=== PATIENT | male | born 1970 | race Two or more races ===

== ENCOUNTER → 2019-06-25 | Day surgery (SDC) | payer OTHER ==
[~2019-06-25] VITALS: Ht 188 cm; Wt 82.6 kg
[2019-06-25] VITALS (11 sets, daily range): BP systolic 120–166; BP diastolic 72–94
[~2019-06-25] MED LIST: Bacitracin 50000 Units Vial ONE; Bupivacaine w/Epi 0.5% 30ml Vial INJ ONE; D5 1/2NS 1,000 ML IV SCH; DiphenhydrAMINE 50mg/ml Inj IVP PRN; Glycopyrrolate 0.2mg/ml 1ml Vial ONE; HYDROcodone/Acetamin 5/325 tab ORAL PRN; HYDROmorphone 1mg/ml Carpuject SUBQ PRN; Hydromorphone 0.5mg/0.5ml inj IVP PRN; KLONOPIN0.5 MG ORAL; Ketorolac 30mg Inj IV PRN; Ketorolac 30mg Inj ONE; LR 1000ml 1,000 ML IVLG SCH; LR 1000ml ONE; MAGNESIUM30 M1 PO; Meperidine 50mg/ml Inj(FOR RIGORS ONLY) IV PRN; Metoclopramide 10mg/2ml Inj IVP PRN; Midazolam 2mg/2ml Inj ONE; NS Irrig 1000ml ONE; NeoSporin Gu Irrig 1ml Amp IRRIG ONE; Neostigmine 1mg/ml 10ml Inj ONE; Propofol 200mg/20ml IV ONE; Rocuronium Bromide 50mg/5ml Inj IV ONE; Sterile Water Irrig 1000ml IRRIG ONE; Succinylcholine 20mg/ml 10ml vial ONE; TRUVADA 200 MG1 EAC1 ORAL; Tylenol #3 tab (300mg/30mg) ORAL PRN; VITAMIN C1000 M2 PO; ceFAZolin sod 2 GM in D5W 110 ML IV ONE; fentaNYL 100 mcg/2 mL ONE
--- NOTE | 2019-06-25 12:16 | Pre-Procedure Note/Attestation ---
Pre-Procedure Note/Attestation Complete Prior to Procedure Planned Procedure: bilateral Procedure Narrative: laparoscopic vs open left inguinal hernia repair with mesh; possible open Indications for Procedure Pre-Operative Diagnosis: left inguinal hernia possible right inguinal hernia Attestation I attest that I discussed the nature of the procedure; its benefits; risks and complications; and alternatives (and the risks and benefits of such alternatives ), prior to the procedure, with the patient (or the patient's legal client relations representative). I attest that, if there was a reasonable possibility of needing a blood transfusion, the patient (or the patient's legal client relations representative) was given the [facility] standardized written summary, pursuant to the [place] Blood Safety Act ([place] Health and Safety Code # 1645, as amended). I attest that I re-evaluated the patient just prior to the surgery and that there has been no change in the patient's H&P, except as documented below: Harish Nuñez Jun 25, 2019 12:16
--- NOTE | 2019-06-25 13:39 | Anethesia Preoperative Eval ---
Anesthesia Pre-op PMH/ROS General Date of Evaluation: Jun 25, 2019 Time of Evaluation: 12:30 Anesthesiologist: Amalia ASA Score: ASA 2 Mallampati Score Class I : Soft palate, uvula, fauces, pillars visible Class II: Soft palate, uvula, fauces visible Class III: Soft palate, base of uvula visible Class IV: Only hard plate visible Mallampati Classification: Class II Surgeon: Blaine Diagnosis: L injuinal hernia Surgical Procedure: Laparoscopic hernia repair Anesthesia History: PONV Family History: no anesthesia problems Allergies: Coded Allergies: No Known Allergies (Unverified , 06/25/19) Medications: see eMAR Patient NPO?: Yes Past Medical History Cardiovascular: Denies: HTN, CAD, [place], valve dz, arrhythmia, other Pulmonary: Denies: asthma, COPD, LISSETT, other Gastrointestinal/Genitourinary: Reports: GERD - mild; Denies: CRI, ESRD, other Neurologic/Psychiatric: Reports: depression/anxiety Endocrine: Denies: DM, hypothyroidism, steroids, other HEENT: Denies: cataract (L), cataract (R), glaucoma, NEZ PERCE (L), NEZ PERCE (R), other Hematology/Immune: Denies: anemia, DVT, bleeding disorder, other Musculoskeletal/Integumentary: Denies: OA, RA, DJD, DDD, edema, other PMH Narrative: as above PSxH Narrative: Septoplasty, T&A, liposuction Anesthesia Pre-op Phys. Exam Physician Exam Last Vital Signs Date Time Temp Pulse Resp B/P (MAP) Pulse Ox O2 Delivery O2 Flow Rate FiO2 06/25/19 10:18 Room Air 06/25/19 10:09 97.0 48 18 120/72 97 Constitutional: NAD Neurologic: CN 2-12 intact Cardiovascular: RRR, no M/R/G Respiratory: CTA Gastrointestinal: S/NT/ND Airway Exam Mallampati Score: Class II MO: full Neck: flexible ROM: full Teeth: intact Dentures: no upper, no lower Anesthesia Pre-op A/P Labs see chart Studies Pre-op Studies: EKG - NR Risk Assessment & Plan Assessment: ASA 2 Plan: GA with ETT Status Change Before Surgery: No Pre-Antibiotics Drug: Ancef 2gr Given Within 1 Hr of Incision: Yes Time Given: 13:10 Bharath Holland MD Jun 25, 2019 13:39
--- NOTE | 2019-06-25 14:42 | Brief Operative Note ---
Immediate Post Operative Note Operative Note Pre-op Diagnosis: left inguinal hernia possible right inguinal hernia Procedure: 1. umbilical hernia repair 2. left inguinal hernia repair with mesh 3. right inguinal hernia repair with mesh Post-op Diagnosis: 1. small umbilical hernia 2. left indirect inguinal hernia with small direct component and moderate lipoma of the cord 3. right direct inguinal hernia Surgeon: Savannah Anesthesiologist: Amalia Anesthesia: general, local Specimen: yes - umbilcical hernia sac Complications: none Condition: stable Fluids: see records Estimated Blood Loss: minimal Drains: none Implant(s) used?: Yes - see list Harish Nuñez Jun 25, 2019 14:42
--- NOTE | 2019-06-25 14:53 | Immediate Post-Op Evaluation ---
Immediate Post-Op Evalulation Immediate Post-Op Evalulation Procedure: Bilateral laparoscopic hernia repair Date of Evaluation: Jun 25, 2019 Time of Evaluation: 14:52 IV Fluids: 1000 Blood Products: none Estimated Blood Loss: min Urinary Output: none Blood Pressure Systolic: 156 Blood Pressure Diastolic: 78 Pulse Rate: 86 Respiratory Rate: 18 O2 Sat by Pulse Oximetry: 98 Temperature (Fahrenheit): 97.8 Pain Score (1-10): 1 Nausea: No Vomiting: No Complications none Patient Status: reacts, patent, extubated, none Hydration Status: adequate Bharath Holland MD Jun 25, 2019 14:53
--- NOTE | 2019-06-25 16:14 | 48 Hour Post Anesthesia Eval ---
Post Anesthesia Evaluation Procedure: Bilateral laparoscopic hernia repair Date of Evaluation: Jun 25, 2019 Time of Evaluation: 16:10 Blood Pressure Systolic: 128 0: 76 Pulse Rate: 68 Respiratory Rate: 20 Temperature (Fahrenheit): 97.7 O2 Sat by Pulse Oximetry: 98 Airway: patent Nausea: No Vomiting: No Pain Intensity: 2 Hydration Status: adequate Cardiopulmonary Status: stable Mental Status/LOC: patient returned to baseline Follow-up Care/Observations: n/a Post-Anesthesia Complications: none Follow-up care needed: ready to discharge Bharath Holland MD Jun 25, 2019 16:14
--- NOTE | 2019-06-26 22:00 | Operative Note - Dictated ---
DATE OF OPERATION: 06/25/2019 PREOPERATIVE DIAGNOSES: 1. Left inguinal hernia, possible right. 2. Umbilical hernia. POSTOPERATIVE DIAGNOSES: 1. Small umbilical hernia. 2. Left indirect inguinal hernia with small direct component and moderate lipoma of cord. 3. Right direct inguinal hernia. OPERATION PERFORMED: 1. Umbilical hernia repair, open. 2. Laparoscopic left inguinal hernia repair with mesh. 3. Laparoscopic right inguinal hernia repair with mesh. ATTENDING SURGEON: Harish Nuñez M.D. SCREENER PERFUMER: None. ANESTHESIOLOGIST: Bharath Holland M.D. ANESTHESIA: General FEED MILLER plus local. SPECIMENS: Umbilical hernia sac. COMPLICATIONS: None. DRAINS: None. COUNTS: Sponge and needle count correct x2. ANTIBIOTICS: 2 g Ancef given 1 hour prior to cut time. IMPLANTS: 1. Bard 3DMax mesh right medium laparoscopic inguinal hernia mesh. Lot [id number]. Date of expiration 12/26/2023. Reference #[id number]. 2. Bard 3DMax mesh left medium laparoscopic inguinal hernia mesh. Lot number [id number]. Expiration date 11/27/2021. Reference #[id number]. INDICATIONS FOR PROCEDURE: This is a 48-year-old male who was referred to myself after being identified by his primary care physician of having an inguinal hernia. In the office, the patient was identified to have a symptomatic left inguinal hernia and furthermore on exam was noted to have a small potential right inguinal hernia. The patient states that since 2018, he began noticing some left groin pain during workouts. Intermittently causing discomfort and when seen by his primary care physician, Dr. Logan who ordered an ultrasound, which identified a hernia. He complains of intermittent discomfort on the right side that has been more recent. 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 Given these findings, surgery is indicated and recommended. Long discussion was had with the patient regarding these findings and operative intervention. We discussed laparoscopic versus open surgery. We discussed laparoscopic left inguinal hernia repair with possible right inguinal hernia repair if a hernia was identified intraoperatively. Furthermore, umbilical hernia repair. The patient expressed understanding and consented to surgery, which was scheduled and planned for 06/25/2019 after all risks, benefits, and alternatives were discussed in detail. Furthermore, we discussed in detail mesh indications and usage and potential complications. OPERATIVE NOTE: The patient was taken to the operating room and placed on the operating table in supine position with bilateral arms tucked. All bony prominences were well padded. SCDs were placed. Preoperative time-out taken to identify the patient, procedure, operative staff, and surgical staff. General anesthesia was induced. The patient was intubated. Downs catheter was not inserted given the patient voided prior to entering the operating room. The abdomen was clipped, prepped, draped in standard surgical fashion. Because of the patient's umbilical hernia, an umbilical incision was made using a fresh #11 scalpel and hernia sac was clearly identified. Hernia sac was incised and entry of the abdomen was noted without complication. A 12 mm Kathryn trocar was inserted and the abdomen was insufflated 12 to 15 mmHg. The hernia sac of note was sent to pathology for review. Laparoscope was inserted. No injury from initial trocar placement noted. In the right upper quadrant, liver was otherwise healthy. In the left upper quadrant, liver was otherwise healthy with a small cyst noted at the edge. Stomach portions of intestine, which we noted were otherwise healthy and normal. The pelvis was otherwise normal. In the right lower quadrant, a small to moderate direct inguinal hernia was identified. In the left lower quadrant, a left indirect inguinal hernia with a small direct component was clearly identified. At this time, decision was made to proceed with surgical invention of bilateral inguinal hernia repairs with mesh. Secondary trocars were placed under direct visualization beginning with a 5 mm right mid abdomen followed by left 5mm mid abdomen port. No injury from secondary trocar placement noted. Laparoscopes were inserted and we first began with the left side. The peritoneal lining approximately 2 cm above the hernia defect was incised and carried medially to the medial ligament followed laterally towards the anterior superior iliac spine. A plane was made in the peritoneal lining until the hernia sac was noted. The hernia sac was reduced and clear plane was made for mesh placement. On the left side, the cord was circumferentially dissected out and protected throughout the procedure. A lipoma of the cord was noted on the left side, moderate in size, and was reduced, but not divided and placed anterior to the mesh upon completion of the procedure. The pubic tubercle was clearly identified on the right side and cleared off for mesh placement and we ensured not to go too laterally, but just enough for mesh placement. Once appropriate exposure was obtained at this time, a BlueKaiMax laparoscopic precut medium sized mesh was inserted into the operative field and inserted through the 12 mm trocar into the abdomen. It was positioned and fashioned appropriately to cover direct, indirect, and femoral potential hernia spaces. A ProTack absorbable tack was then used to tack to Javi's ligament medially. No lateral tacks were placed. Once in appropriate positioning, the peritoneal lining was reapproximated using laparoscopic absorbable ProTack. Following this, in a similar fashion on the right side, hernia repair was fashioned. 2 cm above the direct defect, a incision was made in the peritoneal lining, carried laterally and medially followed by dissection of the peritoneal lining plane. The hernia was reduced and dissection was carried medially to the pubic tubercle. Dissection was then carried laterally. Cord structures were clearly identified. No lipoma of the cord was noted on the right. Cord structures were protected throughout the procedure. A Bard right-sided medium 3D precut mesh was then inserted into the operative field and placed into the abdomen followed by appropriate positioning. In similar fashion, ProTack absorbable tack was used to fashion to Javi's ligament on the right side. Satisfactory hernia repair was noted bilaterally. The peritoneal lining was reapproximated on the right side as well with ProTack absorbable tacks. Tisseel fibrin glue was then inserted on both ends for further mesh sealing. Satisfactory bilateral hernia repair was performed without complication. At this time, the secondary trocars were removed under direct visualization. Following this, the abdomen was desufflated. The umbilical trocar site was removed. The fascial edges of the umbilical hernia were freshened and the fascia was reapproximated using 0 [id number] Vicryl suture. Remaining skin incisions were cleansed. Local anesthetic was inserted throughout the procedure for the patient's comfort. Skin incisions were reapproximated using 4-0 Monocryl subcuticular interrupted sutures. Skin glue and Steri-Strips were applied. At the end of the procedure, both testicles were identified to be within the scrotal sac. Satisfactory repair was performed. The patient was extubated and taken to postanesthesia care unit in stable condition. Harish Nuñez M.D. DR: HAZEL JOB#: [id number] CC: JESSICA
== END | disposition home or self-care (01) ==
LOC: SUR 09:37
DX: K40.20 Bilateral inguinal hernia, without obstruction or gangrene, not specified as recurrent (principal); K42.9 Umbilical hernia without obstruction or gangrene; K76.89 Other specified diseases of liver; K21.9 Gastro-esophageal reflux disease without esophagitis; F32.9 Major depressive disorder, single episode, unspecified; F41.9 Anxiety disorder, unspecified; M54.9 Dorsalgia, unspecified
CPT/HCPCS: 49585; 49650; C1781; J0330; J0690; J1885; J2250; J2405; J2704; J2710; J3010; 94003; 94150